=== PATIENT | female | born 1935 | race Caucasian/White ===

== ENCOUNTER 2021-03-25 18:12 | Emergency (ER) | payer MEDICARE, BC ==
[2021-03-25 18:52] LABS: CHLORIDE,CL 92 mEq/L (98-106); SODIUM,NA 133 mEq/L (136-145)
--- NOTE | 2021-03-25 18:52 | EDM.PDOC ---
ED HPI GENERAL MEDICAL PROBLEM - General Chief Complaint: General Stated Complaint: weak,SOB Time Seen by Provider: 03/25/21 18:45 Source of Information: Reports: Patient, Family History Limitations: Reports: No Limitations - History of Present Illness INITIAL COMMENTS - FREE TEXT/NARRATIVE: Shannan is an 86 year old female who presents to the ED via [facility] with c/o shortness of breath, lower extremity edema, weakness and mid upper back pain. She was discharged from [facility] today. Son reports that she has been in [facility] the past week for CHF. Was discharged to swing bed 03/21/2021. They report they got to her house and she was unable to get up the steps due to weakness and shortness of breath. EMS was called and they requested to be brought to [facility]. Did receive some medical records from [facility]. She is a new patient to this facility so I have no access to complete past medical records. Labs significant for proBNP 6011. Of note, her bilirubin on 03/19/2021 was 1.3. Upon discharge today, bilirubin was 8.4 and upon presentation to ED bilirubin is up to 9.8. She reports for the past 4 days she has been having mid-upper back pain between her shoulder blades. Reports she has just been miserable. She related it to therapy, which was completed while hospitalized, as they were working with her arms. She reports she has not had appetite the last 4 days as well, but denies any nausea, vomiting, diarrhea or significant abdominal pain. Did struggle with constipation while hospitalized but has been taking Miralax, which relieved that. Does have hx of paroxysmal atrial fibrillation and is anticoagulated on Eliquis. Last echo was 06/01/2020 which revealed EF of 60-65%. She does not feel her edema improved much the past week. Does also c/o tailbone pain. Coccyx and buttock very reddened with stage I pressure sore to right buttock. Onset Date: 03/15/21 Duration: Getting Worse Location: Reports: Abdomen (mid upper), Back (midupper & tailbone) Associated Symptoms: Reports: Loss of Appetite, Malaise, Shortness of Breath, Weakness. Denies: Confusion, Chest Pain, Cough, cough w sputum, Diaphoresis, Fever/Chills, Headaches, Nausea/Vomiting, Rash, Seizure, Syncope Upper Back Pain Score (Numeric/FACES): 5 - Related Data Allergies Allergy/AdvReac Type Severity Reaction Status Date / Time cephalexin Allergy Cannot Verified 03/25/21 19:00 Remember potassium Allergy Itching Verified 03/25/21 19:00 povidone-iodine Allergy Itching Verified 03/25/21 19:00 [From Betadine] soap [From Betadine] Allergy Itching Verified 03/25/21 19:00 Home Meds: Home Meds Acetaminophen [Tylenol] 650 mg PO Q6H PRN 03/25/21 [History] Anastrozole [Arimidex] 1 mg PO DAILY 03/25/21 [History] Apixaban [Eliquis] 2.5 mg PO BID 03/25/21 [History] Aspirin [Aspirin EC] 81 mg PO DAILY 03/25/21 [History] Cholecalciferol (Vitamin D3) [Vitamin D3] 1,000 units PO DAILY 03/25/21 [History] Cyanocobalamin (Vitamin B-12) [Vitamin B-12] 1,000 mcg PO DAILY 03/25/21 [History] Empagliflozin [Jardiance] 10 mg PO DAILY 03/25/21 [History] Furosemide 20 mg PO 1200 03/25/21 [History] Furosemide 40 mg PO DAILY 03/25/21 [History] Linagliptin [Tradjenta] 5 mg PO DAILY 03/25/21 [History] Rosuvastatin [Crestor] 2.5 mg PO MOWEFR 03/25/21 [History] allopurinoL [Zyloprim] 100 mg PO DAILY 03/25/21 [History] carvediloL [Carvedilol] 3.125 mg PO BID 03/25/21 [History] rOPINIRole [Requip] 0.5 mg PO BEDTIME 03/25/21 [History] traMADol [Ultram] 50 mg PO Q6H PRN 03/25/21 [History] Past Medical History Cardiovascular History: Reports: Heart Failure, High Cholesterol, Hypertension, SOB on Exertion Endocrine/Metabolic History: Reports: Diabetes, Type II Social & Family History - Family History Family Medical History: No Pertinent Family History - Tobacco Use Tobacco Use Status *Q: Never Tobacco User - Caffeine Use Caffeine Use: Reports: None - Recreational Drug Use Recreational Drug Use: No ED ROS GENERAL - Review of Systems Review Of Systems: See Below Constitutional: Reports: Malaise, Weakness, Fatigue, Decreased Appetite. Denies: Fever, Chills HEENT: Reports: No Symptoms Respiratory: Reports: Shortness of Breath. Denies: Wheezing, Pleuritic Chest Pain, Cough, Sputum, Hemoptysis Cardiovascular: Reports: Dyspnea on Exertion, Edema, Orthopnea. Denies: Chest Pain, Lightheadedness, Syncope Endocrine: Reports: Fatigue GI/Abdominal: Reports: Abdominal Pain, Decreased Appetite. Denies: Black Stool, Bloody Stool, Constipation, Diarrhea, Nausea, Vomiting : Reports: No Symptoms Musculoskeletal: Reports: Other (mid back and tailbone pain) Skin: Reports: Jaundice, Wound Neurological: Reports: Difficulty Walking, Weakness. Denies: Confusion, Dizziness, Headache, Numbness, Tingling Psychiatric: Reports: No Symptoms Hematologic/Lymphatic: Reports: No Symptoms Immunologic: Reports: No Symptoms ED EXAM, GENERAL - Physical Exam Exam: See Below Exam Limited By: No Limitations General Appearance: Alert, WD/WN, No Apparent Distress Eye Exam: Bilateral Eye: EOMI, Normal Fundi, Normal Inspection, PERRL Throat/Mouth: Other (Dry mucous membranes) Head: Atraumatic, Normocephalic Neck: Normal Inspection, Supple, Non-Tender, Full Range of Motion Respiratory/Chest: No Respiratory Distress, No Accessory Muscle Use, Decreased Breath Sounds (bilatearl bases L>R) Cardiovascular: Tachycardia, Systolic Murmur, Irregularly Irregular GI/Abdominal: Normal Bowel Sounds, Soft, No Distention, No Abnormal Bruit, Te nder (midepigastric), Hernia (large umbilical hernia). No: Guarding, Rigid, Rebound Back Exam: Decreased Range of Motion, Other (erythema to buttock and coccyx, area blanchable, stage I pressure sore to left buttock). No: CVA Tenderness (L), CVA Tenderness (R) Extremities: Normal Capillary Refill, Pedal Edema (2+ pitting) Neurological: Alert, Oriented, Normal Cognition, No Motor/Sensory Deficits Psychiatric: Normal Affect, Normal Mood Skin Exam: Jaundice, Wound/Incision (left buttock with stage I pressure sore and erythema, scattered scabs to BLE) Course - Vital Signs Last Recorded V/S: Last Vital Signs Temp 98.1 F 03/25/21 20:40 Pulse 114 H 03/25/21 18:13 Resp 20 03/25/21 20:40 BP 96/59 L 03/25/21 20:40 Pulse Ox 92 L 03/25/21 20:40 - Orders/Labs/Meds Labs: Laboratory Tests 03/25/21 03/25/21 03/25/21 Range/Units 18:31 18:31 19:08 WBC 11.2 H (4.0-11.0) 10^3/uL RBC 4.19 (4.00-5.50) x10^6/uL Hgb 11.9 L (12.0-16.0) g/dL Hct 36.4 L (37.0-47.0) % MCV 86.9 (83.0-97.0) fL MCH 28.4 (27.0-32.0) pg MCHC 32.7 (32.0-36.0) g/dL RDW Coeff of Rc 16.9 H (11.0-15.0) % Plt Count 272 (150-400) 10^3/uL Immature Gran % (Auto) 0.4 (0.0-4.9) % Neut % (Auto) 80.1 H (41-71) % Lymph % (Auto) 8.6 L (24-44) % [place] % (Auto) 10.4 H (0-10) % Eos % (Auto) 0.3 (0-6) % Baso % (Auto) 0.2 (0-1) % Neut # (Auto) 8.96 H (1.80-8.00) x10^3/uL Lymph # (Auto) 0.96 (0.60-5.00) 10^3/uL [place] # (Auto) 1.16 (0.00-1.50) 10^3/uL Eos # (Auto) 0.03 (0.00-1.50) 10^3/uL Baso # (Auto) 0.02 (0.00-0.50) 10^3/uL Immature Gran # (Auto) 0.05 (0.00-0.49) 10^3/uL Sodium 133 L (136-145) mEq/L Potassium 3.3 L (3.5-5.0) mEq/L Chloride 92 L (98-106) mEq/L Carbon Dioxide 33 H (21-32) mmol/L BUN 40 H (7-18) mg/dL Creatinine 1.9 H (0.6-1.0) mg/dL Est Cr Clr Drug Dosing TNP Estimated GFR (MDRD) 25 L (>=60) mL/min Glucose 155 H (75-99) mg/dL Calcium 8.7 (8.4-10.1) mg/dL Magnesium 2.2 (1.8-2.4) mg/dL Total Bilirubin 9.8 H (0.0-1.0) mg/dL AST 73 H (15-37) U/L ALT 47 (12-78) U/L Alkaline Phosphatase 342 H (46-116) U/L Lactate Dehydrogenase 178 (100-190) U/L Creatine Kinase 24 (21-215) U/L Troponin I < 0.017 (0.00-0.06) ng/mL NT-Pro-B Natriuret Pep 71553 H (0-1000) pg/mL Total Protein 7.1 (6.4-8.2) g/dL Albumin 2.7 L (3.4-5.0) g/dL Amylase (25-115) U/L Lipase (73-393) U/L 03/25/21 Range/Units 21:05 WBC (4.0-11.0) 10^3/uL RBC (4.00-5.50) x10^6/uL Hgb (12.0-16.0) g/dL Hct (37.0-47.0) % MCV (83.0-97.0) fL MCH (27.0-32.0) pg MCHC (32.0-36.0) g/dL RDW Coeff of Rc (11.0-15.0) % Plt Count (150-400) 10^3/uL Immature Gran % (Auto) (0.0-4.9) % Neut % (Auto) (41-71) % Lymph % (Auto) (24-44) % [place] % (Auto) (0-10) % Eos % (Auto) (0-6) % Baso % (Auto) (0-1) % Neut # (Auto) (1.80-8.00) x10^3/uL Lymph # (Auto) (0.60-5.00) 10^3/uL [place] # (Auto) (0.00-1.50) 10^3/uL Eos # (Auto) (0.00-1.50) 10^3/uL Baso # (Auto) (0.00-0.50) 10^3/uL Immature Gran # (Auto) (0.00-0.49) 10^3/uL Sodium (136-145) mEq/L Potassium (3.5-5.0) mEq/L Chloride (98-106) mEq/L Carbon Dioxide (21-32) mmol/L BUN (7-18) mg/dL Creatinine (0.6-1.0) mg/dL Est Cr Clr Drug Dosing Estimated GFR (MDRD) (>=60) mL/min Glucose (75-99) mg/dL Calcium (8.4-10.1) mg/dL Magnesium (1.8-2.4) mg/dL Total Bilirubin (0.0-1.0) mg/dL AST (15-37) U/L ALT (12-78) U/L Alkaline Phosphatase (46-116) U/L Lactate Dehydrogenase (100-190) U/L Creatine Kinase (21-215) U/L Troponin I (0.00-0.06) ng/mL NT-Pro-B Natriuret Pep (0-1000) pg/mL Total Protein (6.4-8.2) g/dL Albumin (3.4-5.0) g/dL Amylase 157 H (25-115) U/L Lipase 54 L (73-393) U/L Meds: Medications Discontinued Medications Generic Name Dose Route Start Last Admin Trade Name Freq PRN Reason Stop Dose Admin Furosemide 40 mg 03/25/21 19:26 03/25/21 19:30 Furosemide 40 Mg/4 Ml Vial IVPUSH 03/25/21 19:27 40 mg ONETIME ONE Administration Tramadol HCl 50 mg 03/25/21 21:20 03/25/21 21:36 Tramadol 50 Mg Tab PO 03/25/21 21:21 50 mg ONETIME ONE Administration - Re-Assessments/Exams Free Text/Narrative Re-Assessment/Exam: 03/25/21 20:[address] Hernandez regarding admission. Recommends transfer to higher level of care given concern for obstruction of CBD given significant rise in bilirubin over the past week and possible need for ERCP. We do not have US capability this evening. 03/25/21 20:40 Consulted with [facility]. They are full and not accepting transfers at this time. 03/25/21 20:[address] Cervantes, GI at [facility]. They currently do not have any beds available and are asking outlying facilities to hold patients. Recommend dose of IV Zosyn and complete imaging tomorrow morning to further identify cause of elevated bilirubin if unable to find transfer to higher level of care elsewhere. 03/25/21 20:47 Consulted [facility]. They do not have GI coverage capable of performing ERCP so unable to accept patient due to concerns for need of ERCP. 03/25/21 21:03 [facility] full and unable to accept patients. 03/25/21 21:09 Consulted with [facility]. Discussed case with ED physician Dr. Rivero, who accepted the patient for transfer to the ED. Discussed risks and benefits of transfer with patient. Risks of transfer include worsening of condition, , pain and MVA enroute. Benefits of transfer include higher level of care with GI consultation. Risks of nontransfer include worsening of condition, , pain. Benefits of nontransfer include convenience. Patient verbalized understanding and was agreeable to transfer. Departure - Departure Time of Disposition: 21:15 Disposition: DC/Tfer to Acute Hospital 02 Condition: Poor Clinical Impression: CHF, Congestive heart failure, Elevated bilirubin, Atrial fibrillation with RVR, Mid-back pain, acute Abdominal pain Qualifiers: Abdominal location: upper abdomen, unspecified Qualified Code(s): R10.10 - Upper abdominal pain, unspecified Type 2 diabetes mellitus Qualifiers: Diabetes mellitus manager terminal insulin use: without alf use Diabetes mellitus complication status: with hyperglycemia Qualified Code(s): E11.65 - Type 2 diabetes mellitus with hyperglycemia Chronic kidney disease Qualifiers: Chronic kidney disease stage: stage 3 (moderate) Chronic kidney disease stage 3 subtype: stage 3b (GFR 30-44) Qualified Code(s): N18.32 - Chronic kidney disease, stage 3b - Discharge Information *PRESCRIPTION DRUG MONITORING PROGRAM REVIEWED*: Not Applicable *COPY OF PRESCRIPTION DRUG MONITORING REPORT IN PATIENT BILL: Not Applicable Referrals: Akilah Arevalo PA-C [Primary Care Provider] - Forms: ED Department Discharge Sepsis Event Note (ED) - Evaluation Sepsis Screening Result: No Definite Risk - Problem List & Annotations (1) CHF, Congestive heart failure SNOMED Code(s): 44859250 Code(s): I50.9 - HEART FAILURE, UNSPECIFIED Status: Acute (2) Atrial fibrillation with RVR SNOMED Code(s): 454030808351421 Code(s): I48.91 - UNSPECIFIED ATRIAL FIBRILLATION Status: Acute (3) Chronic kidney disease SNOMED Code(s): 839833240 Code(s): N18.9 - CHRONIC KIDNEY DISEASE, UNSPECIFIED Status: Acute Qualifiers: Chronic kidney disease stage: stage 3 (moderate) Chronic kidney disease stage 3 subtype: stage 3b (GFR 30-44) Qualified Code(s): N18.32 - Chronic kidney disease, stage 3b (4) Abdominal pain SNOMED Code(s): 77380112 Code(s): R10.9 - UNSPECIFIED ABDOMINAL PAIN Status: Acute Qualifiers: Abdominal location: upper abdomen, unspecified Qualified Code(s): R10.10 - Upper abdominal pain, unspecified (5) Elevated bilirubin SNOMED Code(s): 21101055 Code(s): R17 - UNSPECIFIED JAUNDICE Status: Acute (6) Type 2 diabetes mellitus SNOMED Code(s): 94512638 Code(s): E11.9 - TYPE 2 DIABETES MELLITUS WITHOUT COMPLICATIONS Status: Acute Qualifiers: Diabetes mellitus manager terminal insulin use: without manager terminal use Diabetes mellitus complication status: with hyperglycemia Qualified Code(s): E11.65 - Type 2 diabetes mellitus with hyperglycemia (7) Mid-back pain, acute SNOMED Code(s): 410377575 Code(s): M54.9 - DORSALGIA, UNSPECIFIED Status: Acute - Problem List Review Problem List Initiated/Reviewed/Updated: Yes - Assessment/Plan Admission H&P: Please use this note as an admission H&P Assessment:: CHF Exacerbation Elevated Bilirubin Abdominal Pain radiating to back Atrial Fibrillation CKD Type 2 DM Plan: Transfer to [facility] for further workup/treatment. Patient will be transferred via [facility]. Pain medications administered prior to discharge. Also did receive 40 mg Lasix IV. Cummings catheter placed prior to 2+ hour transfer. Discharged from facility in stable condition.
[2021-03-25] MEDS ORDERED: Furosemide 40 MG/4 ML VIAL IVPUSH ONE (19:26)
[2021-03-25] MEDS ORDERED: traMADol 50 MG Tab PO ONE (21:20)
== END 2021-03-25 22:40 ==
LOC: CC.ED 18:12 → UNDOADMIN 19:50 → CC.MS 19:50 → CC.ED 22:40
DX: E11.65 Type 2 diabetes mellitus with hyperglycemia (principal); E11.22 Type 2 diabetes mellitus with diabetic chronic kidney disease; I13.0 Hypertensive heart and chronic kidney disease with heart failure and stage 1 through stage 4 chronic kidney disease, or unspecified chronic kidney disease; N18.32 Chronic kidney disease, stage 3b; I50.9 Heart failure, unspecified; I48.91 Unspecified atrial fibrillation; E80.7 Disorder of bilirubin metabolism, unspecified; Z79.01 Long term (current) use of anticoagulants; Z79.899 Other long term (current) drug therapy; Z91.09 Other allergy status, other than to drugs and biological substances; Z91.048 Other nonmedicinal substance allergy status; Z88.1 Allergy status to other antibiotic agents; Z91.041 Radiographic dye allergy status
CPT/HCPCS: 36415; 51702; 71045; 80053; 82150; 82550; 83615; 83690; 83735; 83880; 84484; 85025; 93005; 93010; 96374; 99284; 99285-25; A9270-GY; J1940